=== PATIENT | female | born 1955 | race Caucasian/White ===

== ENCOUNTER 2017-02-15 10:09 | Day surgery (SDC) | payer MEDICAID ==
[~2017-02-15] VITALS: Ht 172.7 cm; Wt 97.7 kg
[2017-02-15] MEDS ORDERED: SODIUM CHLORIDE 0.9% 500 ML IV PRN (10:39)
[2017-02-15 10:42] VITALS: BP 144/108
[2017-02-15] MEDS ORDERED: VENL75CA PO (11:19)
[2017-02-15] MEDS ORDERED: METO25TA35 PO (11:19)
[2017-02-15] MEDS ORDERED: ALPR0.5T6 PO (11:19)
[2017-02-15] MEDS ORDERED: DICL100G8 TP (11:19)
[2017-02-15] MEDS ORDERED: BUTA1CAP58 PO (11:19)
[2017-02-15] MEDS ORDERED: ZOLP10TA5 PO (11:19)
[2017-02-15] MEDS ORDERED: ACYC-114 PO (11:19)
[2017-02-15] MEDS ORDERED: RIVA20TA PO (11:19)
[2017-02-15 12:02] LABS: BLOOD UREA NITROGEN 10 mg/dL (7-18)
== END 2017-02-15 13:25 ==
LOC: CACL 10:09
PROVIDERS: ATTEND Internal Medicine Cardiovascular Disease
DX: I48.91 Unspecified atrial fibrillation (principal); F41.9 Anxiety disorder, unspecified; G43.909 Migraine, unspecified, not intractable, without status migrainosus; Z86.19 Personal history of other infectious and parasitic diseases; Z79.01 Long term (current) use of anticoagulants
CPT/HCPCS: 36415; 80048; 92960; 93005

== ENCOUNTER → 2017-02-24 | Outpatient (CLI) | payer MEDICAID ==
[~2017-02-24] MED LIST: ACYC-114 PO; ALPR0.5T6 PO; BUTA1CAP58 PO; DICL100G19 TP; METO25TA35 PO; REGADENOSON 0.4 MG/5 ML SYRINGE ONE; RIVA20TA PO; VENL75CA PO; ZOLP10TA5 PO
== END | disposition home or self-care (01) ==
LOC: CFH 13:19
PROVIDERS: ATTEND Internal Medicine Cardiovascular Disease
DX: I48.91 Unspecified atrial fibrillation (principal); I10 Essential (primary) hypertension
CPT/HCPCS: 78452; 93017; A9502; J2785

== ENCOUNTER 2017-03-04 10:44 | Day surgery (SDC) | payer MEDICAID ==
[~2017-03-04] VITALS: Ht 175.3 cm; Wt 96.8 kg
[~2017-03-04 10:44] MED LIST changes: -REGADENOSON 0.4 MG/5 ML SYRINGE ONE
[2017-03-04] MEDS ORDERED: FLEC50TA25 PO (11:54)
[2017-03-04] MEDS ORDERED: FLECAINIDE 100MG TABLET PO ONE (12:00)
[2017-03-04] MEDS ORDERED: PROPOFOL 10 MG/ML, 20ML ONE (12:57)
== END 2017-03-04 14:40 ==
LOC: CACL 10:44
PROVIDERS: ATTEND Internal Medicine Cardiovascular Disease
DX: I48.91 Unspecified atrial fibrillation (principal); E66.3 Overweight; G43.909 Migraine, unspecified, not intractable, without status migrainosus; Z86.19 Personal history of other infectious and parasitic diseases; Z87.39 Personal history of other diseases of the musculoskeletal system and connective tissue
CPT/HCPCS: 92960; J2704

== ENCOUNTER → 2017-03-05 | Outpatient (CLI) | payer MEDICAID ==
[~2017-03-05] MED LIST changes: +FLEC50TA25 PO
== END | disposition home or self-care (01) ==
LOC: CFH 11:25
PROVIDERS: ATTEND Nurse Practitioner Primary Care
DX: Z13.820 Encounter for screening for osteoporosis (principal); M85.88 Other specified disorders of bone density and structure, other site; I48.91 Unspecified atrial fibrillation; R06.02 Shortness of breath
CPT/HCPCS: 71020; 77080

== ENCOUNTER 2017-03-08 09:05 | Inpatient (IN) | payer MEDICAID ==
[~2017-03-08] VITALS: Ht 175.3 cm; Wt 99.8 kg
[2017-03-08] MEDS ORDERED: SODIUM CHLORIDE FLUSH 10ML SYR IVF ONE (10:30)
[2017-03-08 10:44] LABS: HEMATOCRIT 42.9 % (34.6-47.8); HEMOGLOBIN 14.6 g/dL (11.7-16.4); WHITE BLOOD COUNT 8.3 x10^3/uL (3.4-10)
[2017-03-08 10:54] LABS: ASPARTATE AMINO TRANSFERASE 40 U/L (15-37); BLOOD UREA NITROGEN 9 mg/dL (7-18)
[2017-03-08 10:59] LABS: IS PT STATUS REG ER OR PRE ER? YES
[2017-03-08] MEDS ORDERED: FUROSEMIDE 20 MG/2 ML IV ONE (11:00)
[2017-03-08] MEDS ORDERED: OMNIPAQUE 350 MG/ML, 100ML BOTTLE ONE (11:54)
[2017-03-08] MEDS ORDERED: FUROSEMIDE 20 MG/2 ML ONE (12:41)
[2017-03-08] MEDS ORDERED: ONDANSETRON 2MG/ML, 2ML IVPush PRN (13:00)
[2017-03-08] MEDS ORDERED: BISACODYL 10 MG SUPP PR PRN (13:00)
[2017-03-08] MEDS ORDERED: LABETALOL 5MG/ML, 20ML IVPush PRN (13:00)
[2017-03-08] MEDS ORDERED: ACETAMINOPHEN 325 MG TABLET PO PRN (13:00)
[2017-03-08] MEDS ORDERED: POLYETHYLENE GLYCOL 17 GM PACKET PO PRN (13:00)
[2017-03-08] MEDS ORDERED: DOCUSATE 100 MG CAPSULE PO PRN (13:00)
[2017-03-08] MEDS ORDERED: HYDROcodone/APAP 5/325 TABLET PO PRN (13:00)
[2017-03-08] MEDS ORDERED: morphine SULFATE 10 MG/ML, 1ML IVPush PRN (13:00)
[2017-03-08] MEDS ORDERED: ONDANSETRON 2MG/ML, 2ML ONE (14:23)
[2017-03-08] MEDS ORDERED: MORPHINE SULFATE 4 MG/ML, 1ML ONE (14:23)
[2017-03-08] MEDS ORDERED: MORPHINE SULFATE 4 MG/ML, 1ML IVPush PRN (15:38)
[2017-03-08] MEDS: DICLOFENAC SODIUM 2 GM TP SCH ×2 (16:00→20:58)
[2017-03-08 16:08] VITALS: BP 115/72
[2017-03-08] MEDS: POTASSIUM CHLORIDE 20 MEQ TAB.ER.PRT PO SCH (17:12)
[2017-03-08] MEDS: RIVAROXABAN 20 MG TABLET PO SCH (17:12)
[2017-03-08 18:02] LABS: IS PT STATUS REG ER OR PRE ER? NO
[2017-03-08] MEDS: METOPROLOL TARTRATE 25 MG TABLET PO SCH (21:00)
[2017-03-08 21:12] VITALS: BP 105/46
[2017-03-08] MEDS: ZOLPIDEM 10MG TABLET PO SCH (21:19)
[2017-03-08] MEDS: FLECAINIDE 100MG TABLET PO SCH (21:19)
[2017-03-08] MEDS: BUTALBIT/ACETAMIN/CAFF/CODEINE CAPSULE PO PRN (22:05)
[2017-03-08 23:31] LABS: IS PT STATUS REG ER OR PRE ER? NO
[2017-03-09 02:18] VITALS: BP 93/57
[2017-03-09] MEDS: DICLOFENAC SODIUM 2 GM TP SCH ×4 (05:33→20:34)
[2017-03-09 05:42] LABS: HEMATOCRIT 39.4 % (34.6-47.8); HEMOGLOBIN 13.5 g/dL (11.7-16.4); WHITE BLOOD COUNT 5.6 x10^3/uL (3.4-10)
[2017-03-09 05:51] LABS: BLOOD UREA NITROGEN 12 mg/dL (7-18)
[2017-03-09 07:48] VITALS: BP 117/70
[2017-03-09] MEDS: POTASSIUM CHLORIDE 20 MEQ TAB.ER.PRT PO SCH ×2 (09:29→17:30)
[2017-03-09] MEDS: FUROSEMIDE 40 MG/4 ML IV SCH (09:30)
[2017-03-09] MEDS: VENLAFAXINE 75 MG CAP ER PO SCH (09:30)
[2017-03-09] MEDS: METOPROLOL TARTRATE 25 MG TABLET PO SCH ×2 (09:30→20:32)
[2017-03-09] MEDS: FLECAINIDE 100MG TABLET PO SCH ×2 (09:31→20:32)
[2017-03-09 12:44] VITALS: BP 92/67
[2017-03-09] MEDS: RIVAROXABAN 20 MG TABLET PO SCH (17:30)
[2017-03-09] MEDS ORDERED: ZOLPIDEM 5MG TABLET ONE (20:18)
[2017-03-09 20:24] VITALS: BP 130/87
[2017-03-09] MEDS: BUTALBIT/ACETAMIN/CAFF/CODEINE CAPSULE PO PRN (20:31)
[2017-03-09] MEDS: ZOLPIDEM 10MG TABLET PO SCH (20:31)
[2017-03-10 01:27] VITALS: BP 113/79
[2017-03-10] MEDS: DICLOFENAC SODIUM 2 GM TP SCH ×3 (05:01→15:48)
[2017-03-10 05:49] LABS: HEMATOCRIT 43.6 % (34.6-47.8); HEMOGLOBIN 14.7 g/dL (11.7-16.4); WHITE BLOOD COUNT 6.2 x10^3/uL (3.4-10)
[2017-03-10 06:12] LABS: BLOOD UREA NITROGEN 9 mg/dL (7-18)
[2017-03-10 08:38] VITALS: BP 133/92
[2017-03-10] MEDS: METOPROLOL TARTRATE 25 MG TABLET PO SCH (09:34)
[2017-03-10] MEDS: FUROSEMIDE 40 MG/4 ML IV SCH (09:34)
[2017-03-10] MEDS: VENLAFAXINE 75 MG CAP ER PO SCH (09:34)
[2017-03-10] MEDS: POTASSIUM CHLORIDE 20 MEQ TAB.ER.PRT PO SCH (09:35)
[2017-03-10] MEDS: FLECAINIDE 100MG TABLET PO SCH (09:35)
[2017-03-10] MEDS ORDERED: FURO-93 PO (11:35)
[2017-03-10 12:44] VITALS: BP 110/78
[2017-03-10 19:54] VITALS: BP 116/81
== END 2017-03-10 23:29 | disposition home or self-care (01) | DRG 308 ==
LOC: ED 12:35 → EDIP 12:59 → 4EST 15:13
PROVIDERS: ADMIT Internal Medicine; ATTEND Internal Medicine
DX: I48.0 Paroxysmal atrial fibrillation (principal); I50.33 Acute on chronic diastolic (congestive) heart failure; E44.0 Moderate protein-calorie malnutrition; D68.69 Other thrombophilia; K76.0 Fatty (change of) liver, not elsewhere classified; I48.92 Unspecified atrial flutter; F32.9 Major depressive disorder, single episode, unspecified; I11.0 Hypertensive heart disease with heart failure; F41.9 Anxiety disorder, unspecified; K59.00 Constipation, unspecified; N20.0 Calculus of kidney; Z79.01 Long term (current) use of anticoagulants; Z82.49 Family history of ischemic heart disease and other diseases of the circulatory system; Z85.41 Personal history of malignant neoplasm of cervix uteri; Z87.891 Personal history of nicotine dependence; Z68.32 Body mass index [BMI] 32.0-32.9, adult
CPT/HCPCS: 36415; 71010; 71275; 74177; 80048; 80053; 81003; 83605; 83880; 84443; 84484; 85025; 85379; 85610; 85730; 93005; 93306; 96374; 96375; J1940; J2405; Q9967; J2270

== ENCOUNTER → 2017-05-14 | Outpatient (CLI) | payer MEDICAID ==
[~2017-05-14] MED LIST changes: +FURO-93 PO
== END | disposition home or self-care (01) ==
LOC: CFH 12:35
PROVIDERS: ATTEND Nurse Practitioner Primary Care
DX: D17.1 Benign lipomatous neoplasm of skin and subcutaneous tissue of trunk (principal)
CPT/HCPCS: 76641; G0204